=== PATIENT | female | born 1970 | race Caucasian/White ===

== ENCOUNTER 2016-10-18 21:16 | Emergency (ER) | payer OTHER ==
[2016-10-18 21:43] LABS: BASOPHILS 0.1 %; BASOPHILS ABSOLUTE 0.02 10/3/uL (0.0-0.16); EOSINOPHILS 0.4 %; EOSINOPHILS ABSOLUTE 0.05 10/3/uL (0.0-0.53); ER CBC TAT 0 Hrs 07 Mins; HEMATOCRIT 41.5 % (36.0-48.0); IMMATURE GRANULOCYTES 0.1 %; IMMATURE GRANULOCYTES ABSOLUTE 0.02 10/3/uL (0.0-0.11); LYMPHOCYTES 7.6 %; LYMPHOCYTES ABSOLUTE 1.02 10/3/uL (0.67-4.30); MEAN CORPUS HGB CONC 33.7 g/dL (32.0-36.0); MEAN CORPUSCULAR HEMOGLOB 30.7 pg (26.0-34.0); MEAN PLATELET VOLUME 11.4 fL (9.2-13.0); MONOCYTES 3.9 %; MONOCYTES ABSOLUTE 0.53 10/3/uL (0.21-1.20); NEUTROPHILS 87.9 %; PLATELET COUNT 206 10/3/uL (150-400); RED CELL COUNT 4.56 10/6/uL (4.0-5.6); WHITE BLOOD CELLS 13.4 10/3/uL (4.5-10.5)
[2016-10-18 21:45] LABS: MANUAL DIFF NO %
[2016-10-18 21:52] LABS: INTERNATIONAL NORMAL RATI 1.1 UNITS (-); PARTIAL THROMBO TIME 29.1 SEC (22.5-37.2); PROTIME (NOT ORD) 14.2 SEC (12.0-14.5)
[2016-10-18 22:01] LABS: BUN (BLOOD UREA NITROGEN) 10 MG/DL (6-23); CALCIUM, SERUM 8.7 MG/DL (8.5-10.4); CHEST PAIN PROFILE TAT 0 Hrs 25 Mins; CHLORIDE, SERUM 104 MMOL/L (96-112); CO2 (CARBON DIOXIDE) 30 MMOL/L (24-34); CREATININE 1.02 MG/DL (0.55-1.02); GFR AFRICAN AMERICAN 76 ML/MIN (>=60); GFR NON AFRICAN AMERICAN 66 ML/MIN (>=60); GLUCOSE, SERUM 81 MG/DL (60-99); POTASSIUM, SERUM 3.8 MMOL/L (3.5-5.3); SODIUM, SERUM 138 MMOL/L (135-148); TROPONIN I <0.02 NG/ML (<0.05)
[2017-02-19] MEDS ORDERED: NEUR300 PO (08:13)
[2017-02-19] MEDS ORDERED: PLAVIX PO (08:13)
[2017-02-19] MEDS ORDERED: WELLXL300 PO (08:14)
[2017-02-19] MEDS ORDERED: KEPPRA1000 MG PO (08:14)
[2017-02-19] MEDS ORDERED: X5 PO (08:14)
[2017-02-19] MEDS ORDERED: LEUCOVOR CA5 MG PO (08:14)
[2017-02-19] MEDS ORDERED: Proair Hfa (08:15)
[2017-02-19] MEDS ORDERED: PROBIOTIC PO (08:15)
[2017-02-19] MEDS ORDERED: MAG OXIDE250 MG PO (08:15)
[2017-02-19] MEDS ORDERED: EFFEXXR75 PO (08:15)
[2017-02-19] MEDS ORDERED: B121000P IM (08:16)
[2017-02-19] MEDS ORDERED: Vitamin D 5 (08:16)
[2017-02-19] MEDS ORDERED: CLARITD24H PO (08:16)
[2017-02-19] MEDS ORDERED: FLONASE NAS (08:17)
[2017-02-19] MEDS ORDERED: HORMONE IMPLANT SC (08:17)
[2017-02-19] MEDS ORDERED: LINZESS 290 M290 MCG PO (08:17)
[2017-02-19] MEDS ORDERED: PROGESTERONE CREAM TOP (08:18)
[2017-02-19] MEDS ORDERED: EPIPEN0.3 IM (08:18)
== END 2016-10-18 23:24 | disposition home or self-care (01) ==
LOC: ER 21:16
PROVIDERS: Hospitalist
DX: S09.90XA Unspecified injury of head, initial encounter (principal); R55 Syncope and collapse; H81.10 Benign paroxysmal vertigo, unspecified ear; D72.829 Elevated white blood cell count, unspecified; J45.909 Unspecified asthma, uncomplicated; F32.9 Major depressive disorder, single episode, unspecified; Z90.710 Acquired absence of both cervix and uterus; Z90.49 Acquired absence of other specified parts of digestive tract; Z88.5 Allergy status to narcotic agent; Z88.8 Allergy status to other drugs, medicaments and biological substances; Z91.013 Allergy to seafood; W19.XXXA Unspecified fall, initial encounter; Y92.096 Garden or yard of other non-institutional residence as the place of occurrence of the external cause
CPT/HCPCS: 70450; 71010; 80048; 83735; 84484; 85025; 85610; 85730; 93005; 96374; 99285; J2550